=== PATIENT | female | born 1970 | race Caucasian/White ===

== ENCOUNTER 2018-02-10 23:54 | Emergency (ER) | payer MEDICAID ==
[~2018-02-10] VITALS: Ht 160 cm; Wt 70.5 kg
[~2018-02-10 23:54] MED LIST: GOOD NEIGHBOR P81 MG; RANITIDINE75 MG PO; TYLENOL
[2018-02-11 00:10] VITALS: Ht 160 cm; Wt 70.5 kg
[2018-02-11 02:38] VITALS: BP 118/68
== END 2018-02-11 02:40 | disposition home or self-care (01) ==
LOC: ED 23:54
DX: N39.0 Urinary tract infection, site not specified (principal)
CPT/HCPCS: J1885

== ENCOUNTER 2018-02-24 21:40 | Emergency (ER) | payer MEDICAID ==
[~2018-02-24] VITALS: Ht 154.9 cm; Wt 69.9 kg
[2018-02-24 21:53] VITALS: Ht 154.9 cm; Wt 69.9 kg
[2018-02-24 22:24] VITALS: BP 122/69
== END 2018-02-24 23:32 | disposition home or self-care (01) ==
LOC: ED 21:40
DX: S52.502A Unspecified fracture of the lower end of left radius, initial encounter for closed fracture (principal); S52.612A Displaced fracture of left ulna styloid process, initial encounter for closed fracture; K21.9 Gastro-esophageal reflux disease without esophagitis; W17.89XA Other fall from one level to another, initial encounter; Y93.89 Activity, other specified; Y92.89 Other specified places as the place of occurrence of the external cause; Y99.8 Other external cause status
CPT/HCPCS: J3010; Q0092

== ENCOUNTER 2020-01-16 17:33 | Emergency (ER) | payer MEDICAID ==
[~2020-01-16] VITALS: Ht 154.9 cm; Wt 70.8 kg
[2020-01-16 17:39] VITALS: Ht 154.9 cm; Wt 70.8 kg
[2020-01-16 18:16] LABS: BASOPHIL % 0.3 % (0-2); PLATELET COUNT 279 x10^3mcL (130-400); RED CELL DISTRIBUTION WIDTH 13.7 % (11.5-14.5)
[2020-01-16 18:27] LABS: CALCIUM 8.8 mg/dL (8.5-10.1); CARBON DIOXIDE 29.4 mmol/L (21-32); CHLORIDE SERUM 102 mmol/L (98-107); CREATININE SERUM 0.8 mg/dL (0.6-1.0); GFR1 > 60 mL/min; GLUCOSE SERUM 97 mg/dL (74-106); SODIUM SERUM 138 mmol/L (136-145)
[2020-01-16 18:31] LABS: ALBUMIN 3.9 g/dL (3.4-5.0); ALKALINE PHOSPHATASE 56 U/L (46-116); ALT/SGPT 27 U/L (14-59); AST/SGOT 15 U/L (15-37); BILIRUBIN TOTAL 0.2 mg/dL (0.20-1.00); TOTAL PROTEIN, SERUM 7.8 g/dL (6.4-8.2)
[2020-01-16 19:50] VITALS: BP 106/56
== END 2020-01-16 19:50 | disposition home or self-care (01) ==
LOC: ED 17:33
PROVIDERS: Emergency Medicine
DX: N39.0 Urinary tract infection, site not specified (principal); K21.9 Gastro-esophageal reflux disease without esophagitis; G43.909 Migraine, unspecified, not intractable, without status migrainosus
CPT/HCPCS: J1885

== ENCOUNTER 2020-01-23 23:07 | Emergency (ER) | payer MEDICAID ==
[~2020-01-23] VITALS: Ht 154.9 cm; Wt 72.2 kg
[2020-01-23 23:21] VITALS: Ht 154.9 cm; Wt 72.2 kg
[2020-01-24 02:47] LABS: UA SPECIFIC GRAVITY >=1.030 (1.005-1.035); microscopic required? YES; urine erythrocyte 2+ (NEGATIVE)
[2020-01-24 02:50] LABS: BASOPHIL % 1.8 % (0-2); PLATELET COUNT 347 x10^3mcL (130-400); RED CELL DISTRIBUTION WIDTH 12.9 % (11.5-14.5)
[2020-01-24 02:56] LABS: CALCIUM 8.6 mg/dL (8.5-10.1); CARBON DIOXIDE 27.8 mmol/L (21-32); CHLORIDE SERUM 105 mmol/L (98-107); CREATININE SERUM 0.6 mg/dL (0.6-1.0); GFR1 > 60 mL/min; GLUCOSE SERUM 92 mg/dL (74-106); POTASSIUM SERUM 3.6 mmol/L (3.5-5.1); SODIUM SERUM 142 mmol/L (136-145)
[2020-01-24 03:02] LABS: ALBUMIN 3.8 g/dL (3.4-5.0); ALKALINE PHOSPHATASE 46 U/L (46-116); ALT/SGPT 26 U/L (14-59); AST/SGOT 8 U/L (15-37); BILIRUBIN TOTAL 0.28 mg/dL (0.20-1.00); LIPASE 145 IU/L (73-393); TOTAL PROTEIN, SERUM 7.4 g/dL (6.4-8.2)
[2020-01-24 03:36] VITALS: BP 112/73
== END 2020-01-24 03:36 | disposition home or self-care (01) ==
LOC: ED 23:07
PROVIDERS: Emergency Medicine
DX: R10.9 Unspecified abdominal pain (principal); K21.9 Gastro-esophageal reflux disease without esophagitis; G43.909 Migraine, unspecified, not intractable, without status migrainosus; Z98.890 Other specified postprocedural states
CPT/HCPCS: 36415; J1885

== ENCOUNTER 2020-08-08 10:06 | Emergency (ER) | payer MEDICAID ==
[~2020-08-08] VITALS: Ht 157.5 cm; Wt 70.3 kg
[2020-08-08 10:19] VITALS: BP 108/55; Ht 157.5 cm; Wt 70.3 kg
== END 2020-08-08 12:35 | disposition home or self-care (01) ==
LOC: ED 10:06
DX: S30.0XXA Contusion of lower back and pelvis, initial encounter (principal); K21.9 Gastro-esophageal reflux disease without esophagitis; G43.909 Migraine, unspecified, not intractable, without status migrainosus; W01.0XXA Fall on same level from slipping, tripping and stumbling without subsequent striking against object, initial encounter; Y93.89 Activity, other specified; Y92.89 Other specified places as the place of occurrence of the external cause; Y99.8 Other external cause status

== ENCOUNTER 2020-08-17 01:05 | Emergency (ER) | payer MEDICAID ==
[~2020-08-17] VITALS: Ht 165.1 cm; Wt 74.8 kg
[2020-08-17 01:20] VITALS: Ht 165.1 cm; Wt 74.8 kg
[2020-08-17 02:24] VITALS: BP 135/61
== END 2020-08-17 02:24 | disposition home or self-care (01) ==
LOC: ED 01:05
DX: M54.41 Lumbago with sciatica, right side (principal); N30.90 Cystitis, unspecified without hematuria; G43.909 Migraine, unspecified, not intractable, without status migrainosus; K21.9 Gastro-esophageal reflux disease without esophagitis
CPT/HCPCS: J1885